=== PATIENT | female | born 1970 | race Caucasian/White ===

== ENCOUNTER 2020-05-26 15:28 | Emergency (ER) | payer OTHER ==
--- NOTE | 2020-05-26 15:39 | ED Physician Documentation ---
PD HPI URI - Stated complaint Stated Complaint: COUGH - History obtained from History obtained from: Patient - History of Present Illness Timing - onset: How many months ago (1) Timing duration: Months (1) Timing details: Gradual onset, Still present, Waxing and waning Associated symptoms: Nasal congestion, Productive cough (states some wheezing dyspnea with activity and congested wet cough without much sputum per se.), Dyspnea. No: Fever, Chills, Sinus pain, Sore throat, Chest pain, NVD, Bilateral edema Contributing factors: COPD / asthma (without regular inhaler use). No: Sick contact, Travel, Immunocompromised Worsened by: Activity Recently seen: Not recently seen Review of Systems Constitutional: reports: Myalgias. denies: Fever, Chills, Fatigue Nose: reports: Congestion (felt it was allergies/environment, but has had increasing cough the past week with some sputum there.). 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 - Present Medications Home Medications: Ambulatory Orders Medication Instructions Recorded Confirmed Ibuprofen 800 mg ORAL DAILY 04/07/15 04/07/15 Albuterol Sulfate [Albuterol 2 puffs IH QID #1 hfa.aer.ad 05/26/20 Sulfate Hfa] Benzonatate [Tessalon Perle] 100 mg PO TID PRN #30 capsule 05/26/20 Doxycycline Monohydrate 100 mg PO BID #14 tablet 05/26/20 dexAMETHasone [Decadron] 4 mg PO DAILY #5 tablet 05/26/20 - Allergies Allergies/Adverse Reactions: Allergies Allergy/AdvReac Type Severity Reaction Status Date / Time codeine Allergy Rash Verified 05/26/20 15:42 Penicillins Allergy Unknown Verified 05/26/20 15:42 - Social History Does the pt smoke?: Yes Smoking Status: Current every day smoker Does the pt drink ETOH?: Yes Does the pt have substance abuse?: No - Immunizations Immunizations are current?: Yes PD ED PE NORMAL - Vitals Vital signs reviewed: Yes - General General: Alert and oriented X 3, No acute distress, Well developed/nourished - HEENT HEENT: Ears normal, Moist mucous membranes, Pharynx benign - Neck Neck: Supple, no meningeal sign, No adenopathy - Cardiac Cardiac: RRR, No murmur - Respiratory Respiratory: No: Clear bilaterally (some exp wheezing noted and faint coarse s ounds on right) - Derm Derm: Normal color, No rash - Extremities Extremities: No tenderness to palpate, Normal ROM s pain, No edema, No calf tenderness / cord - Neuro Neuro: Alert and oriented X 3, No motor deficit, Normal speech Results - Vitals Vitals: Vital Signs - 24 hr 05/26/20 05/26/20 15:37 17:46 Temperature 36.9 C 36.8 C Heart Rate 79 80 Respiratory 18 16 Rate Blood Pressure 145/84 H 140/80 H O2 Saturation 96 98 Oxygen O2 Source Room air - Rads (name of study) chest xrayq Radiology: Prelim report reviewed (faint linear infiltrates noted area of right lower lung field. Consider infiltrate versus chronic lung disease. ), See rad report PD MEDICAL DECISION MAKING - ED course Complexity details: reviewed results, considered differential (sounds like some environmental allergies/sensitivities, with congestion and cough, but may have some infectious component now as well.), d/w patient Departure - Departure Disposition: 01 Home, Self Care Clinical Impression: Acute bronchitis Qualifiers: Bronchitis organism: unspecified organism Qualified Code(s): J20.9 - Acute bronchitis, unspecified Reactive airway disease Qualifiers: Asthma severity: mild Asthma persistence: intermittent Asthma complication type: with acute exacerbation Qualified Code(s): J45.21 - Mild intermittent asthma with (acute) exacerbation Condition: Stable Record reviewed to determine appropriate education?: Yes Instructions: ED Upper Resp Infec Abx Tx Follow-Up: Kelly Perez MD [Primary Care Provider] - Prescriptions: Albuterol Sulfate [Albuterol Sulfate Hfa] 2 puffs IH QID #1 hfa.aer.ad dexAMETHasone [Decadron] 4 mg PO DAILY #5 tablet Doxycycline Monohydrate 100 mg PO BID #14 tablet Benzonatate [Tessalon Perle] 100 mg PO TID PRN #30 capsule PRN Reason: Cough Comments: Your symptoms are suggestive of reactive airway disease (asthma) with likely environmental irritation but concern would be for an infectious process in addition now. Use the benzonatate (Tessalon Perles) as needed for cough and throat irritation. Decadron steroid daily for 5 more days. Doxycycline antibiotic as directed for a week. Use albuterol inhaler 2 puffs 4 times a day regularly for the next several days to week and then as needed. Recheck if not improving well over the next several days to week. Your prescriptions were transmitted electronically to [facility] in [place]. Discharge Date/Time: 05/26/20 17:46
--- NOTE | 2020-05-26 17:23 | XRAY Report ---
PROCEDURE: Chest 2 View X-Ray INDICATIONS: Dyspnea; cough for a month TECHNIQUE: 2 view(s) of the chest. COMPARISON: None. FINDINGS: Surgical changes and devices: None. Lungs and pleura: Increased interstitial markings in both lungs, particularly in the perihilar region s and lung bases. Pleural spaces are clear. Mediastinum: Mediastinal contours are normal. Heart size is normal. Bones and chest wall: No suspicious bony abnormalities. Soft tissues appear unremarkable. IMPRESSION: Increased interstitial markings in the perihilar regions and lung bases. Findings are no nspecific, potentially indicating the pulmonary edema, atypical or viral infection, or potentially in terstitial lung disease. Reviewed by: Js Swanson MD on 05/26/2020 5:22 PM PDT Approved by: Js Swanson MD on 05/26/2020 5:22 PM PDT Station ID: [id number]
[2020-05-26] MEDS ORDERED: DOXYCYCLINE 100 MG TABLET PO STA (17:27)
[2020-05-26] MEDS ORDERED: CHERRY SYRUP 10 ML UDC PO ONE (17:27)
[2020-05-26] MEDS ORDERED: DEXAMETHASONE 10 MG/ML VIAL PO STA (17:27)
[2020-05-26] MEDS ORDERED: BENZONATATE 100 MG CAPSULE PO STA (17:27)
[2020-05-26 17:47] VITALS: BP 140/80
== END 2020-05-26 17:46 | disposition home or self-care (01) ==
LOC: ED 15:28
DX: J20.9 Acute bronchitis, unspecified (principal); J45.21 Mild intermittent asthma with (acute) exacerbation; F17.200 Nicotine dependence, unspecified, uncomplicated
CPT/HCPCS: 71046; 99283; 99284; A9270

== ENCOUNTER 2020-10-13 00:38 | Outpatient (CLI) | payer OTHER | END 2020-10-13 00:39 | disposition EMS.NT | LOC: EMS 00:38 | PROVIDERS: ATTEND Surgery | DX: R10.13 Epigastric pain (principal); M54.6 Pain in thoracic spine; R11.10 Vomiting, unspecified ==

== ENCOUNTER 2022-07-12 18:05 | Emergency (ER) | payer OTHER ==
[2022-07-12 18:43] LABS: BILIRUBIN,URINE NEGATIVE (NEGATIVE); GLUCOSE, URINE (UA) NEGATIVE (NEGATIVE); KETONES,URINE (UA) NEGATIVE (NEGATIVE); LEUKOCYTE ESTERASE, URINE NEGATIVE (NEGATIVE); NITRITE,URINE NEGATIVE (NEGATIVE); OCCULT BLOOD,URINE MODERATE (NEGATIVE); PROTEIN,URINE TRACE mg/dL (NEGATIVE); UROBILINOGEN,URINE 0.2 (NORMAL) E.U./dL (NORMAL)
[2022-07-12 18:51] LABS: CLARITY,URINE HAZY (CLEAR)
[2022-07-12 18:59] LABS: BACTERIA,URINE Moderate /HPF (None Seen); RBC,URINE TNTC /HPF (0-5); SQUAMOUS EPITHELIAL CELL,UR MOD Squamous (<= Few)
[2022-07-12] MEDS ORDERED: CEFPODOXIME PROXETIL 100 MG TABLET PO STA (19:33)
--- NOTE | 2022-07-12 19:42 | ED Physician Documentation ---
History of Present Illness - Stated complaint Stated Complaint: FEMALE - Chief complaint Chief Complaint: UTI - Additonal information Additional information: 52-year-old female presents emergency department for evaluation of dysuria urgen cy and frequency. Symptoms began last night. She underwent a right hip replacement about 3 weeks ago through [facility]. She thinks that she was briefly catheterized following her surgery. She is denying any fevers, no nausea or vomiting. 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 - Present Medications Home Medications: Ambulatory Orders Medication Instructions Recorded Confirmed Ibuprofen 800 mg ORAL DAILY 04/07/15 04/07/15 Albuterol Sulfate [Albuterol 2 puffs IH QID #1 hfa.aer.ad 05/26/20 Sulfate Hfa] Benzonatate [Tessalon Perle] 100 mg PO TID PRN #30 capsule 05/26/20 Doxycycline Monohydrate 100 mg PO BID #14 tablet 05/26/20 dexAMETHasone [Decadron] 4 mg PO DAILY #5 tablet 05/26/20 Cefpodoxime Proxetil [Vantin] 100 mg PO Q12H #14 tablet 07/12/22 - Allergies Allergies/Adverse Reactions: Allergies Allergy/AdvReac Type Severity Reaction Status Date / Time codeine Allergy Rash Verified 07/12/22 18:25 Penicillins Allergy Unknown Verified 07/12/22 18:25 - Social History Does the pt smoke?: Yes Smoking Status: Current every day smoker Does the pt drink ETOH?: Yes Does the pt have substance abuse?: No - Immunizations Immunizations are current?: Yes PD ED PE NORMAL - HEENT HEENT: PERRL - Neck Neck: Supple, no meningeal sign, No adenopathy - Cardiac Cardiac: RRR, No murmur, No gallop - Respiratory Respiratory: No respiratory distress, Clear bilaterally - Abdomen Abdomen: Normal bowel sounds, Soft, Non tender - Back Back: No CVA TTP, No spinal TTP - Derm Derm: Normal color, No rash Results - Vitals Vitals: Vital Signs - 24 hr 07/12/22 18:23 Temperature 36.4 C L Heart Rate 80 Respiratory 14 Rate Blood Pressure 139/82 H O2 Saturation 96 Oxygen O2 Source Room air - Labs Labs: Laboratory Tests 07/12/22 18:30 Urine Color YELLOW Urine Clarity HAZY Urine pH 6.0 Ur Specific [place] >=1.030 H Urine Protein TRACE Urine Glucose (UA) NEGATIVE Urine Ketones NEGATIVE Urine Occult Blood MODERATE H Urine Nitrite NEGATIVE Urine Bilirubin NEGATIVE Urine Urobilinogen 0.2 (NORMAL) Ur Leukocyte Esterase NEGATIVE Urine RBC TNTC H Urine WBC 6-10 H Ur Squamous Epith Cells MOD Squamous H Urine Bacteria Moderate H Ur Microscopic Review INDICATED Urine Culture Comments NOT INDICATED PD MEDICAL DECISION MAKING - ED course Complexity details: considered differential, d/w patient ED course: 52-year-old female presents emergency department for evaluation of dysuria, urgency and frequency. Symptoms began about 24 hours ago. She was briefly catheterize after undergoing a right hip replacement a few weeks ago. Her urinalysis has moderate squames but the history is most consistent with acute cystitis therefore we will treat her with Vantin. Prescription has been sent to [facility]. Patient advised close follow-up with her surgeon if she would otherwise do. Return for fevers abdominal pain or worsening urinary symptoms Departure - Departure Disposition: 01 Home, Self Care Clinical Impression: Dysuria Condition: Stable Record reviewed to determine appropriate education?: Yes Prescriptions: Cefpodoxime Proxetil [Vantin] 100 mg PO Q12H #14 tablet Comments: Savanah you are seen today in the emergency department because you developed some urinary symptoms over the last 24 hours. Your urine suggests infection though it is somewhat contaminated and was not a clean sample. However given your symptoms I think it would be best to treat you with a short course of antibiotics. Prescription for cefpodoxime also known as Vantin has been sent to the [facility] in [place]. If you find that your symptoms are worsening despite taking the antibiotics for 72 hours, you have fevers, flank pain or vomiting then please return to the emergency department for repeat evaluation
[2022-07-12 19:58] VITALS: BP 133/83
== END 2022-07-12 19:57 | disposition home or self-care (01) ==
LOC: ED 18:05
DX: R30.0 Dysuria (principal); Z96.641 Presence of right artificial hip joint
CPT/HCPCS: 81001; 99282; 99283; A9270; 81003; 87086